=== PATIENT | male | born 1985 | race African-American/Black ===

== ENCOUNTER 2020-09-06 23:19 | Emergency (ER) | payer MEDICAID ==
[~2020-09-06] VITALS: Ht 157.5 cm; Wt 59.0 kg
[2020-09-07] MEDS ORDERED: TETANUS, DIPHTHERIA, PERTUSSIS VAC/PF 0.5ML (>7YR OLD) IM ONE (00:30)
[2020-09-07] MEDS ORDERED: HYDROCODONE/ACETAMINOPHEN 5/325MG TABLET PO ONE (00:30)
[2020-09-07 01:52] VITALS: BP 125/87
== END 2020-09-07 02:20 | disposition home or self-care (01) ==
LOC: ER 23:19
DX: S09.8XXA Other specified injuries of head, initial encounter (principal); S00.83XA Contusion of other part of head, initial encounter; S00.411A Abrasion of right ear, initial encounter; Z98.890 Other specified postprocedural states; Y04.0XXA Assault by unarmed brawl or fight, initial encounter; Y93.89 Activity, other specified; Y92.89 Other specified places as the place of occurrence of the external cause
CPT/HCPCS: 70486; 99285